=== PATIENT | male | born 1940 | race Caucasian/White ===

== ENCOUNTER → 2024-11-17 | Day surgery (SDC) | payer OTHER ==
[2024-11-14 14:26] LABS: Urine Protein, UAD Negative (Negative)
[2024-11-14 14:31] LABS: Hematocrit 43.0 % (41.0-53.0); Hemoglobin 14.8 g/dL (13.5-17.5); Mean Corpuscular Hemoglobin 33.2 pg (28.0-32.0); Mean Corpuscular Volume 96.2 fL (80.0-100.0); Nucleated Red Blood Cells % 0.0 %
[2024-11-14 14:37] LABS: INR 0.99 (0.9-1.15); Partial Thromboplastin Time 29.6 SEC (24.5-34.5); Prothrombin Time 10.5 sec (9.3-11.8)
[2024-11-14 14:42] LABS: Alanine Aminotransferase 28 U/L (7-40); Albumin 4.1 g/dL (3.2-4.8); Alkaline Phosphatase 77 U/L (46-116); Anion Gap 7 (5-15); BUN/Creatinine Ratio 10.6 (10.0-20.0); Bilirubin, Total 0.5 mg/dL (0.2-1.0); Calcium 9.4 mg/dL (8.7-10.4); Carbon Dioxide 30 mmol/L (20-31); Chloride 101 mmol/L (98-107); Glucose 99 mg/dL (74-106); Potassium 4.4 mmol/L (3.5-5.1); Sodium 138 mmol/L (136-145); Total Protein 7.0 g/dL (5.7-8.2)
[2024-11-14 14:56] LABS: Blood Urea Nitrogen 9 mg/dL (9-23)
[~2024-11-17] VITALS: Ht 170.2 cm; Wt 94.3 kg
[~2024-11-17] MED LIST: ALBUAER3 IN; ASPI81CH59 PO; DIAZ-680 PO; FINACRY XX; LIDOCAINE VISCOUS 2% 15ML UD ONE; METO25TA93 PO; MIDAZOLAM HCL 2MG/2ML 2ml VIAL (1mg/ml) ONE; OMEP5TAB PO; ONDANSETRON HCL 4 MG/2 ML VIAL ONE; PREG75CA PO; PROPOFOL 10 MG/ML 20 ML IV ONE; SACU1CAP2 PO; SILD50TA PO; SODIUM CHLORIDE LOCK 10 ML ONE; fentaNYL CITRATE 100 MCG/2 ML VL ONE
[2024-11-17 09:32] VITALS: PULSE 78; RESP 18; TEMP 97.2
[2024-11-17 10:02] VITALS: BP 148/76; PULSE 79; RESP 14; O2SAT 95
--- NOTE | 2024-11-17 10:13 | DVHOP2 ---
Operative Report DATE OF OPERATION: 11/17/24 PROCEDURE: Upper Endoscopy with biopsy and dilate esophagus unguided. PREOPERATIVE INDICATION: The patient is a 84 -year-old male undergoing endoscopy for dysphagia to soft foods and occasionally to solids POSTOPERATIVE DIAGNOSES: 1. 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 There was a 2 cm sliding-type hiatal hernia with slightly irregular squamocolumnar junction no significant erosive esophagitis 3. Mild gastroduodenitis 4. Esophagus was dilated with Laguerre number [id number] PROCEDURE PERFORMED BY: Herman Torres GI NURSE: Emmy SCOPE: Olympus videoendoscope. ASA CLASS: 3 PREOPERATIVE MEDICATIONS: Mac sedation, Dr. Pearl PROCEDURE IN DETAIL: After obtaining an informed consent, the patient was placed on left lateral decubitus position. The patient was then sedated with the above medications. A bite block was placed between his teeth. The endoscope was then passed through the oropharynx, into the esophagus, and through the stomach and pylorus up to the second and third part of the duodenum. The endoscope was then withdrawn. The 2nd and 3rd part of the duodenal were normal. Duodenal bulb showed mild duodenitis. Duodenal biopsies were obtained The pre-pyloric area antrum and body showed mild gastritis with some hyperemia erythema. On retroflexion the fundus and cardia were normal. Gastric biopsies were obtained. The endoscope was then withdrawn into the distal esophagus where the patient had a 2 cm sliding-type hiatal hernia Patient had slightly irregular squamocolumnar junction but no significant esopha gitis. Patient had evidence of presbyesophagus were tertiary contractions of the distal esophagus Patient had a somewhat spastic esophagus with also spasticity noted in the upper esophageal sphincter area. No masses obstructions or evidence of esophagitis was noted The esophagus was dilated with Laguerre number [id number] repeat endoscopy confirmed adequate dilatation. There was no mucosal injury or bleeding. GE junction biopsies were obtained. The endoscope was then withdrawn The patient tolerated the procedure well without difficulty. COMPLICATIONS : None SPECIMENS: Duodenal biopsies Gastric biopsies GE junction biopsies DISPOSITION: Stable D/C to home PLAN: 1. Await for biopsy result 2. Will place pt on Protonix 40 mg p.o. daily 3. Avoid aspirin NSAIDs smoking alcohol 4. Chew food well and drink warm liquids with his meals 5. Outpatient follow up with me in 2-4 weeks to review results and discuss further management HERMAN TORRES MD Nov 17, 2024 10:13
== END | disposition home or self-care (01) ==
LOC: GI 07:57
PROVIDERS: ATTEND Internal Medicine Gastroenterology
DX: K29.50 Unspecified chronic gastritis without bleeding (principal); K29.80 Duodenitis without bleeding; K44.9 Diaphragmatic hernia without obstruction or gangrene; K22.4 Dyskinesia of esophagus; R13.10 Dysphagia, unspecified; I11.0 Hypertensive heart disease with heart failure; I50.9 Heart failure, unspecified; J44.9 Chronic obstructive pulmonary disease, unspecified; I48.91 Unspecified atrial fibrillation; Z98.41 Cataract extraction status, right eye; Z98.42 Cataract extraction status, left eye; Z98.890 Other specified postprocedural states; Z95.1 Presence of aortocoronary bypass graft; Z88.0 Allergy status to penicillin; Z91.013 Allergy to seafood; Z88.8 Allergy status to other drugs, medicaments and biological substances
CPT/HCPCS: 36415; 43239; 43450; 80053; 81001; 85025; 85610; 85730; 88305; 88342; J2250; J2405; J2704; J3010; J7030